=== PATIENT | male | born 1995 | race Caucasian/White ===

== ENCOUNTER 2016-09-06 15:27 | Emergency (ER) | payer BC ==
[2016-09-19] MEDS ORDERED: NORCO 7.5-3251 EACH PO (07:56)
[2016-09-19] MEDS ORDERED: PERCOCET 10-321 EACH PO (12:22)
== END 2016-09-06 21:00 | disposition home or self-care (01) ==
LOC: ER1 15:27
DX: S42.022A Displaced fracture of shaft of left clavicle, initial encounter for closed fracture (principal); V29.9XXA Motorcycle rider (driver) (passenger) injured in unspecified traffic accident, initial encounter; Y93.89 Activity, other specified; Y92.410 Unspecified street and highway as the place of occurrence of the external cause
CPT/HCPCS: 71250; 73000; 96374; 96375; 99283; J2270; J2405

== ENCOUNTER → 2016-09-19 | Day surgery (SDC) | payer BC ==
[~2016-09-19] VITALS: Ht 193 cm; Wt 123.8 kg
[~2016-09-19] MED LIST: NORCO 7.5-3251 EACH PO; PERCOCET 10-321 EACH PO
== END | disposition home or self-care (01) ==
LOC: OR 07:07
PROVIDERS: Orthopaedic Surgery
PROC: 0PSB04Z Reposition Left Clavicle with Internal Fixation Device, Open Approach (ICD-10-PCS; principal; 2016-09-19 08:15)
DX: S42.022A Displaced fracture of shaft of left clavicle, initial encounter for closed fracture (principal); J45.909 Unspecified asthma, uncomplicated; Z90.89 Acquired absence of other organs; Z79.891 Long term (current) use of opiate analgesic; F17.290 Nicotine dependence, other tobacco product, uncomplicated; V89.9XXA Person injured in unspecified vehicle accident, initial encounter
CPT/HCPCS: 73000; 76000; C1713; J0690; J1200; J1885; J2250; J2270; J2405; J2710; J3010; J7120